=== PATIENT | female | born 1950 | race Caucasian/White ===

== ENCOUNTER 2018-09-07 17:31 | Emergency (ER) | payer MEDICARE, BC ==
[2018-09-07 18:08] VITALS: BP 158/68
[2018-09-07] MEDS ORDERED: HYDROcodone/ACETAMIN 5-325 MG* 1 TAB PO ONE (18:38)
--- NOTE | 2018-09-07 18:38 | UC ---
Lower Extremity/Ankle HPI - HPI Summary HPI Summary: Earlier today a 120lb dog ran into her R knee and she instantly felt pain and fell down. Unable to bear weight. Nothing makes it better/movement makes it worse. Denies swelling, bruising. Pain mostly in back of knee. - History of Current Complaint Chief Complaint: UCLowerExtremity Stated Complaint: RIGHT KNEE INJURY S/P FALL Time Seen by Provider: 09/07/18 18:20 Hx Obtained From: Patient Onset/Duration: Sudden Onset Pain Intensity: 7 Pain Scale Used: 0-10 Numeric Aggravating Factor(s): Standing, Ambulation Alleviating Factor(s): Nothing - Allergies/Home Medications Allergies/Adverse Reactions: Allergies Allergy/AdvReac Type Severity Reaction Status Date / Time amoxicillin Allergy Intermediate rash/itchin Verified 09/07/18 18:09 g PMH/Surg Hx/FS Hx/Imm Hx Previously Healthy: Yes - Surgical History Surgical History: Yes Surgery Procedure, Year, and Place: EAR DRUM RUPTURED. BILATERAL CARPAL TUNNEL. GALL BLADDER - Social History Alcohol Use: Occasionally Substance Use Type: None Smoking Status (MU): Never Smoked Tobacco Review of Systems All Other Systems Reviewed And Are Negative: Yes Constitutional: Positive: Negative Respiratory: Positive: Negative Cardiovascular: Positive: Negative Neurovascular: Negative: Decreased Sensation, Decreased Pulses Musculoskeletal: Positive: Arthralgia - R knee, Decreased ROM - R knee. Negative: Calf Tenderness, Edema Neurological: Negative: Weakness, Numbness Physical Exam Triage Information Reviewed: Yes Appearance: Well-Appearing Vital Signs: Initial Vital Signs Temp 98.9 F 09/07/18 18:04 Pulse 74 09/07/18 18:04 Resp 16 09/07/18 18:04 BP 158/68 09/07/18 18:04 Pulse Ox 100 09/07/18 18:04 Vital Signs Reviewed: Yes Neurological: Positive: Alert, Muscle Tone Normal - R leg Skin Exam: Normal Lower Extremity Course/Dx - Course Course Of Treatment: R knee pain after fall. XRAY did not show fx although we will immobilize it for now. Exam was + for tenderness but good ROM. - Differential Dx/Diagnosis Differential Diagnosis/HQI/PQRI: Arthritis, Contusion, Sprain, Strain Provider Diagnosis: Right knee pain Discharge - Sign-Out/Discharge Documenting (check all that apply): Patient Departure All imaging exams completed and their final reports reviewed: No - Discharge Plan Condition: Good Disposition: HOME Prescriptions: HYDROcodone/ACETAMIN 5-325 MG* [[place] 5-325 TAB*] 1 tab PO Q8H PRN 3 Days #12 tab MDD 4 tabs / daily PRN Reason: Pain Patient Education Materials: Knee Immobilizer (ED) Referrals: Aide eHndrix MD [Primary Care Provider] - Additional Instructions: I do not see any obvious fracture but the final read will be done tomorrow by the radiologists. Follow up with primary care if your knee pain continues. Of note your blood pressure is a bit elevated but I do think it may be due to your pain. Please follow up with your pcp about this to make sure you do not develop hypertension. - Billing Disposition and Condition Condition: GOOD Disposition: Home - Attestation Statements Provider Attestation: I was available for consult. This patient was seen by the EVELINA. The patient was not presented to, seen by, or examined by me. EK
--- NOTE | 2018-09-08 10:22 | UC ---
- Progress Note Progress Note: Radiologist reading of right knee x-ray from September 07, 2018 as read as no fracture. Provider reading of the same day also read as no fracture therefore there is no discrepancy. Course/Dx - Diagnoses Provider Diagnoses: Right knee pain Discharge - Sign-Out/Discharge Documenting (check all that apply): Patient Departure All imaging exams completed and their final reports reviewed: Yes - Discharge Plan Condition: Good Disposition: HOME Prescriptions: HYDROcodone/ACETAMIN 5-325 MG* [[place] 5-325 TAB*] 1 tab PO Q8H PRN 3 Days #12 tab MDD 4 tabs / daily PRN Reason: Pain Patient Education Materials: Knee Immobilizer (ED) Referrals: Aide Hendrix MD [Primary Care Provider] - Additional Instructions: I do not see any obvious fracture but the final read will be done tomorrow by the radiologists. Follow up with primary care if your knee pain continues. Of note your blood pressure is a bit elevated but I do think it may be due to your pain. Please follow up with your pcp about this to make sure you do not develop hypertension. - Billing Disposition and Condition Condition: GOOD Disposition: Home
== END 2018-09-07 19:44 | disposition home or self-care (01) ==
LOC: UCCORT 17:31
DX: M25.561 Pain in right knee (principal); W54.1XXA Struck by dog, initial encounter; Y92.9 Unspecified place or not applicable; Z88.0 Allergy status to penicillin
CPT/HCPCS: 99203; G0463